=== PATIENT | male | born 1955 ===

== ENCOUNTER 2021-06-20 11:00 | Outpatient (RCR) | payer MEDICARE, BC, SELFPAY | END 2021-06-21 23:59 | disposition home or self-care (01) | LOC: CR 11:00 | PROVIDERS: Visit Provider Family Medicine | DX: Z51.89 Encounter for other specified aftercare (principal); I25.2 Old myocardial infarction; Z95.5 Presence of coronary angioplasty implant and graft | CPT/HCPCS: S9472 ==

== ENCOUNTER 2021-07-20 11:00 | Outpatient (RCR) | payer MEDICARE, BC, SELFPAY | END 2021-07-21 23:59 | disposition home or self-care (01) | LOC: CR 11:00 | PROVIDERS: Visit Provider Family Medicine | DX: Z51.89 Encounter for other specified aftercare (principal); I25.2 Old myocardial infarction; Z95.5 Presence of coronary angioplasty implant and graft | CPT/HCPCS: S9472 ==

== ENCOUNTER 2021-07-22 11:00 | Outpatient (RCR) | payer MEDICARE, BC, SELFPAY ==
--- NOTE | 2021-07-26 08:35 | NUR.NOTE ---
Nursing Note: Pt notified Cardiac Rehab staff via phone that per his provider he will not be participating in CR anymore. MD recommendation pt have defibrillator implanted. Inquired about further f/u after defibrillator/if MD would want pt to resume CR after procedure and pt was not sure and did not have overall plan from MD team yet. Discussed putting CR on hold until further plans develop w/ entry level receptionist and surgeon. Pt agrees and states he will contact CR staff once plan is formalized.
== END 2021-08-21 23:59 | disposition home or self-care (01) ==
LOC: CR 11:00
PROVIDERS: Visit Provider Family Medicine
DX: I25.2 Old myocardial infarction (principal); Z51.89 Encounter for other specified aftercare
CPT/HCPCS: S9472